=== PATIENT | male | born 1950 | race Caucasian/White ===

== ENCOUNTER 2018-01-08 10:46 | Emergency (ER) | payer MEDICARE ==
--- NOTE | 2018-01-08 11:47 | EDM.PDOC ---
ED HPI GENERAL MEDICAL PROBLEM - General Chief Complaint: Back Pain or Injury Stated Complaint: BACK PAIN Time Seen by Provider: 01/08/18 11:32 Source of Information: Reports: Patient, Old Records, RN Notes Reviewed History Limitations: Reports: No Limitations - History of Present Illness INITIAL COMMENTS - FREE TEXT/NARRATIVE: 67-year-old gentleman presents to the emergency department today asking for referral for an MRI, he has extensive back history of chronic back pain which is usually controlled by ibuprofen unfortunately his pain has been exacerbated therefore he would like an MRI. On review of records he does have a history of hypertension of which he was being treated for with blood pressure medications however he states he is healthy and does not need these medications therefore he is declining any treatment for his blood pressure medications. I did offer him treatment for pain he declined he did not want any further pain medication other than Motrin he was willing to try Flexeril. Lower Back Pain Score (Numeric/FACES): 2 - Related Data Allergies Allergy/AdvReac Type Severity Reaction Status Date / Time No Known Allergies Allergy Verified 01/08/18 11:16 Home Meds: Home Meds Cyclobenzaprine [Flexeril] 10 mg PO TID PRN #15 tab 01/08/18 [Rx] Ibuprofen 400 mg PO Q4HR 01/08/18 [History] Past Medical History HEENT History: Reports: None Musculoskeletal History: Reports: Back Pain, Chronic - Past Surgical History Neurological Surgical History: Reports: Discectomy, Laminectomy Social & Family History - Tobacco Use Smoking Status *Q: Never Smoker - Caffeine Use Caffeine Use: Reports: Coffee - Recreational Drug Use Recreational Drug Use: No ED ROS GENERAL - Review of Systems Review Of Systems: See Below Constitutional: Reports: No Symptoms Respiratory: Reports: No Symptoms Cardiovascular: Reports: No Symptoms GI/Abdominal: Reports: No Symptoms Musculoskeletal: Reports: Back Pain Neurological: Reports: No Symptoms ED EXAM, GENERAL - Physical Exam Exam: See Below Exam Limited By: No Limitations General Appearance: Alert, WD/WN, No Apparent Distress Respiratory/Chest: No Respiratory Distress Course - Vital Signs Last Recorded V/S: Last Vital Signs Temp 96.1 F 01/08/18 11:13 Pulse 109 H 01/08/18 11:13 Resp 16 01/08/18 11:13 BP 207/126 H 01/08/18 11:13 Pulse Ox 100 01/08/18 11:13 Departure - Departure Time of Disposition: 11:47 Disposition: Home, Self-Care 01 Condition: Poor Clinical Impression: Back pain Qualifiers: Back pain location: low back pain Chronicity: chronic Back pain laterality: bilateral Sciatica presence: without sciatica Qualified Code(s): M54.5 - Low back pain; G89.29 - Other chronic pain - Discharge Information Referrals: PCP,None [Primary Care Provider] - Additional Instructions: Try the Flexeril as needed in combination with your Motrin for pain control recommend restarting your your blood pressure medications, please establish with a primary care provider for further treatment, call return to the emergency department worsening of symptoms - Assessment/Plan Plan: Assessment Acuity = acute on chronic Site and laterality = low back pain Etiology = unknown etiology Manifestations = exacerbation hypertension patient declines treatment Location of injury = Home Lab values = none Plan I did offer him treatment he declined he was willing to try Flexeril therefore prescription written for 10 mg by mouth 3 times a day when necessary total #15, I've asked him to establish with primary care provider for further evaluation which may include an MRI of the future This note was dictated using [employer] voice recognition software please call with any questions on syntax or grammar.
== END 2018-01-08 12:07 | disposition home or self-care (01) ==
LOC: JP.ED 10:46
DX: G89.29 Other chronic pain (principal); M54.5 Low back pain; I10 Essential (primary) hypertension
CPT/HCPCS: 99283

== ENCOUNTER 2020-12-17 13:00 | Emergency (ER) | payer MEDICARE ==
[2020-12-17] MEDS ORDERED: Sodium Chloride 0.9% 10 ML Syringe FLUSH PRN (13:54)
--- NOTE | 2020-12-17 13:59 | EDM.PDOC ---
ED HPI GENERAL MEDICAL PROBLEM - General Chief Complaint: Respiratory Problem Stated Complaint: COPD Time Seen by Provider: 12/17/20 13:45 Source of Information: Reports: Patient, RN Notes Reviewed History Limitations: Reports: No Limitations - History of Present Illness INITIAL COMMENTS - FREE TEXT/NARRATIVE: 70-year-old gentleman presents emergency department today via EMS services complaint of shortness of breath. He has known history of chronic obstructive pulmonary disease which has progressively gotten worse he has had a significant weight loss of 60 pounds over the last 6 months. He states his shortness of breath is really progressed over the last 3 to 4 days. - Related Data Allergies Allergy/AdvReac Type Severity Reaction Status Date / Time No Known Allergies Allergy Verified 01/08/18 11:16 Home Meds: Home Meds Albuterol [Ventolin HFA] 2 puff INH Q6H 12/17/20 [History] Fluticasone/Salmeterol [Advair 100-50] 1 puff INH DAILY 12/17/20 [History] Metoprolol Succinate [Toprol XL 100mg] 100 mg PO DAILY 12/17/20 [History] Naproxen Sodium [Aleve] 1 cap PO Q8H 12/17/20 [History] Past Medical History Respiratory History: Reports: COPD Gastrointestinal History: Reports: Cholelithiasis Genitourinary History: Reports: Urinary Incontinence Musculoskeletal History: Reports: Back Pain, Chronic - Past Surgical History GI Surgical History: Reports: Cholecystectomy Neurological Surgical History: Reports: Discectomy, Laminectomy Social & Family History - Tobacco Use Tobacco Use Status *Q: Former Tobacco User Years of Tobacco use: 5 Used Tobacco, but Quit: Yes Month/Year Tobacco Last Used: 1974 - Caffeine Use Caffeine Use: Reports: None - Recreational Drug Use Recreational Drug Use: No ED ROS GENERAL - Review of Systems Review Of Systems: See Below Constitutional: Reports: No Symptoms HEENT: Reports: No Symptoms Respiratory: Reports: Shortness of Breath, Cough. Denies: Wheezing, Sputum Cardiovascular: Reports: Dyspnea on Exertion GI/Abdominal: Reports: No Symptoms : Reports: No Symptoms Musculoskeletal: Reports: No Symptoms ED EXAM, GENERAL - Physical Exam Exam: See Below Exam Limited By: Respiratory Distress General Appearance: Alert, WD/WN, Mild Distress Respiratory/Chest: Respiratory Distress, Decreased Breath Sounds, Accessory Muscle Use Cardiovascular: No Murmur, Tachycardia GI/Abdominal: Soft, Non-Tender #1 Interpretation EKG Date: 12/17/20 Time: 14:35 Rhythm: NSR [place]: Normal P-Wave: Present QRS: Normal ST-T: Normal QT: Normal Comparison: NA - No Prior EKG Course - Vital Signs Last Recorded V/S: Last Vital Signs Temp 97.5 F 12/17/20 13:32 Pulse 103 H 12/17/20 14:29 Resp 44 H 12/17/20 14:29 BP 117/79 12/17/20 14:29 Pulse Ox 93 L 12/17/20 13:32 - Orders/Labs/Meds Orders: Active Orders 24 hr Category Date Time Status BIPAP [RT BiPAP/CPAP] [RC] ASDIRECTED Care 12/17/20 15:52 Ordered EKG Documentation Completion [RC] ASDIRECTED Care 12/17/20 13:55 Active Peripheral IV Care [RC] . DIRECTED Care 12/17/20 13:55 Active RT Aerosol Therapy [RC] ASDIRECTED Care 12/17/20 15:57 Ordered Chest 1V Frontal [CR] Urgent Exams 12/17/20 13:54 Taken CULTURE BLOOD [BC] Urgent Lab 12/17/20 16:04 Ordered CULTURE BLOOD [BC] Urgent Lab 12/17/20 16:04 Ordered Piperacillin/Tazobactam [Zosyn] 4.5 gm Med 12/17/20 16:05 Ordered Sodium Chloride 0.9% [Normal Saline] 100 ml IV ONETIME Sodium Chloride 0.9% [Saline Flush] Med 12/17/20 13:54 Active 10 ml FLUSH ASDIRECTED PRN Sodium Chloride 0.9% [Saline Flush] Med 12/17/20 13:54 Active 10 ml FLUSH ASDIRECTED PRN Blood Culture x2 Reflex Set [OM.PC] Urgent Oth 12/17/20 16:04 Ordered Peripheral IV Insertion Adult [OM.PC] Urgent Oth 12/17/20 13:54 Ordered EKG 12 Lead [EK] Urgent Ther 12/17/20 13:54 Ordered Medication Orders Piperacillin Sod/Tazobactam (Sod 4.5 gm/ Sodium Chloride) 100 mls @ 100 mls/hr IV ONETIME ONE Stop: 12/17/20 17:04 Sodium Chloride (Sodium Chloride 0.9% 10 Ml Syringe) 10 ml FLUSH ASDIRECTED PRN PRN Reason: Keep Vein Open Last Admin: 12/17/20 14:58 Dose: 10 ml Documented by: LEON Sodium Chloride (Sodium Chloride 0.9% 10 Ml Syringe) 10 ml FLUSH ASDIRECTED PRN PRN Reason: Keep Vein Open Labs: Laboratory Tests 12/17/20 12/17/20 12/17/20 Range/Units 13:54 14:10 14:10 WBC 21.0 H (4.5-11.0) K/uL RBC 3.43 L (4.30-5.90) M/uL Hgb 11.1 L (12.0-15.0) g/dL Hct 31.8 L (40.0-54.0) % MCV 93 (80-98) fL MCH 32 H (27-31) pg MCHC 35 (32-36) % Plt Count 443 H (150-400) K/uL Neut % (Auto) 84.0 H (36-66) % Lymph % (Auto) 7.2 L (24-44) % [place] % (Auto) 5.5 (2-6) % Eos % (Auto) 3.2 (2-4) % Baso % (Auto) 0.1 (0-1) % D-Dimer, Quantitative (0.0-500.0) ng/mL Puncture Site Rt.brachial ABG pH 7.427 (7.350-7.450) ABG pCO2 46.2 H (35.0-42.0) mmHg ABG pO2 107.0 H (75.0-100.0) mmHg ABG HCO3 29.9 H (22.0-26.0) mmol/L ABG Total CO2 27.2 H (23.0-27.0) mmol/L ABG O2 Saturation 98.2 H (95.0-98.0) % ABG O2 Content 15.4 (15.0-23.0) %vol ABG Base Excess 5.3 mm/L ABG Hemoglobin 11.3 L (13.5-18.0) g/dL ABG Oxyhemoglobin 96.2 % ABG Carboxyhemoglobin 1.1 (0.0-1.6) % ABG Methemoglobin 0.9 % Frank Test TNP O2 Delivery Device Nasal cannula Oxygen Flow Rate 2.0 L Sodium 130 L (140-148) mmol/L Potassium 4.5 (3.6-5.2) mmol/L Chloride 92 L (100-108) mmol/L Carbon Dioxide 35 H (21-32) mmol/L Anion Gap 7.5 (5.0-14.0) mmol/L BUN 22 H (7-18) mg/dL Creatinine 0.6 L (0.8-1.3) mg/dL Est Cr Clr Drug Dosing 93.19 mL/min Estimated GFR (MDRD) > 60 (>60) Glucose 101 (74-106) mg/dL Lactic Acid (0.4-2.0) mmol/L Calcium 9.0 (8.5-10.1) mg/dL Total Bilirubin 0.5 (0.2-1.0) mg/dL AST 21 (15-37) U/L ALT 17 (12-78) U/L Alkaline Phosphatase 66 (46-116) U/L Troponin I < 0.017 (0.000-0.056) ng/mL C-Reactive Protein (0.0-0.3) mg/dL Total Protein 6.8 (6.4-8.2) g/dL Albumin 3.0 L (3.4-5.0) g/dL Globulin 3.8 H (2.3-3.5) g/dL Albumin/Globulin Ratio 0.8 L (1.2-2.2) Procalcitonin ng/mL SARS CoV-2 RNA Rapid [place]INO 12/17/20 12/17/20 12/17/20 Range/Units 14:33 14:34 15:14 WBC (4.5-11.0) K/uL RBC (4.30-5.90) M/uL Hgb (12.0-15.0) g/dL Hct (40.0-54.0) % MCV (80-98) fL MCH (27-31) pg MCHC (32-36) % Plt Count (150-400) K/uL Neut % (Auto) (36-66) % Lymph % (Auto) (24-44) % [place] % (Auto) (2-6) % Eos % (Auto) (2-4) % Baso % (Auto) (0-1) % D-Dimer, Quantitative 366.75 (0.0-500.0) ng/mL Puncture Site ABG pH (7.350-7.450) ABG pCO2 (35.0-42.0) mmHg ABG pO2 (75.0-100.0) mmHg ABG HCO3 (22.0-26.0) mmol/L ABG Total CO2 (23.0-27.0) mmol/L ABG O2 Saturation (95.0-98.0) % ABG O2 Content (15.0-23.0) %vol ABG Base Excess mm/L ABG Hemoglobin (13.5-18.0) g/dL ABG Oxyhemoglobin % ABG Carboxyhemoglobin (0.0-1.6) % ABG Methemoglobin % Frank Test O2 Delivery Device Oxygen Flow Rate L Sodium (140-148) mmol/L Potassium (3.6-5.2) mmol/L Chloride (100-108) mmol/L Carbon Dioxide (21-32) mmol/L Anion Gap (5.0-14.0) mmol/L BUN (7-18) mg/dL Creatinine (0.8-1.3) mg/dL Est Cr Clr Drug Dosing mL/min Estimated GFR (MDRD) (>60) Glucose (74-106) mg/dL Lactic Acid 1.6 (0.4-2.0) mmol/L Calcium (8.5-10.1) mg/dL Total Bilirubin (0.2-1.0) mg/dL AST (15-37) U/L ALT (12-78) U/L Alkaline Phosphatase (46-116) U/L Troponin I (0.000-0.056) ng/mL C-Reactive Protein (0.0-0.3) mg/dL Total Protein (6.4-8.2) g/dL Albumin (3.4-5.0) g/dL Globulin (2.3-3.5) g/dL Albumin/Globulin Ratio (1.2-2.2) Procalcitonin ng/mL SARS CoV-2 RNA Rapid [place] Negative 12/17/20 12/17/20 Range/Units 15:14 15:14 WBC (4.5-11.0) K/uL RBC (4.30-5.90) M/uL Hgb (12.0-15.0) g/dL Hct (40.0-54.0) % MCV (80-98) fL MCH (27-31) pg MCHC (32-36) % Plt Count (150-400) K/uL Neut % (Auto) (36-66) % Lymph % (Auto) (24-44) % [place] % (Auto) (2-6) % Eos % (Auto) (2-4) % Baso % (Auto) (0-1) % D-Dimer, Quantitative (0.0-500.0) ng/mL Puncture Site ABG pH (7.350-7.450) ABG pCO2 (35.0-42.0) mmHg ABG pO2 (75.0-100.0) mmHg ABG HCO3 (22.0-26.0) mmol/L ABG Total CO2 (23.0-27.0) mmol/L ABG O2 Saturation (95.0-98.0) % ABG O2 Content (15.0-23.0) %vol ABG Base Excess mm/L ABG Hemoglobin (13.5-18.0) g/dL ABG Oxyhemoglobin % ABG Carboxyhemoglobin (0.0-1.6) % ABG Methemoglobin % Frank Test O2 Delivery Device Oxygen Flow Rate L Sodium (140-148) mmol/L Potassium (3.6-5.2) mmol/L Chloride (100-108) mmol/L Carbon Dioxide (21-32) mmol/L Anion Gap (5.0-14.0) mmol/L BUN (7-18) mg/dL Creatinine (0.8-1.3) mg/dL Est Cr Clr Drug Dosing mL/min Estimated GFR (MDRD) (>60) Glucose (74-106) mg/dL Lactic Acid (0.4-2.0) mmol/L Calcium (8.5-10.1) mg/dL Total Bilirubin (0.2-1.0) mg/dL AST (15-37) U/L ALT (12-78) U/L Alkaline Phosphatase (46-116) U/L Troponin I (0.000-0.056) ng/mL C-Reactive Protein 0.34 H (0.0-0.3) mg/dL Total Protein (6.4-8.2) g/dL Albumin (3.4-5.0) g/dL Globulin (2.3-3.5) g/dL Albumin/Globulin Ratio (1.2-2.2) Procalcitonin < 0.05 ng/mL SARS CoV-2 RNA Rapid [place] Meds: Medications Generic Name Dose Route Start Last Admin Trade Name Freq PRN Reason Stop Dose Admin Piperacillin Sod/Tazobactam 100 mls @ 100 mls/hr 12/17/20 16:05 Sod 4.5 gm/ Sodium Chloride IV 12/17/20 17:04 ONETIME ONE Sodium Chloride 10 ml 12/17/20 13:54 12/17/20 14:58 Sodium Chloride 0.9% 10 Ml Syringe FLUSH 10 ml ASDIRECTED PRN Administration Keep Vein Open Sodium Chloride 10 ml 12/17/20 13:54 Sodium Chloride 0.9% 10 Ml Syringe FLUSH ASDIRECTED PRN Keep Vein Open Discontinued Medications Generic Name Dose Route Start Last Admin Trade Name Freq PRN Reason Stop Dose Admin Albuterol/Ipratropium 3 ml 12/17/20 15:57 12/17/20 16:02 Albuterol/Ipratropium 3.0-0.5 Mg/3 Ml Neb Soln NEB 12/17/20 15:58 3 ml ONETIME ONE Administration Departure - Departure Time of Disposition: 16:13 Disposition: DC/Tfer to Acute Hospital 02 Condition: Poor Clinical Impression: COPD exacerbation - Discharge Information Referrals: PCP,None [Primary Care Provider] - Forms: ED Department Discharge Critical Care Note - Critical Care Note Total Time (mins): 35 Sepsis Event Note (ED) - Evaluation Sepsis Screening Result: No Definite Risk - Focused Exam Vital Signs: Vital Signs Temp Pulse Resp BP Pulse Ox 12/17/20 14:29 103 H 44 H 117/79 12/17/20 13:32 97.5 F 107 H 36 H 148/84 H 93 L 12/17/20 13:28 103 H 33 H 123/71 95 12/17/20 13:05 97.5 F 107 H 36 H 148/84 H 93 L - My Orders Last 24 Hours: My Active Orders 12/17/20 13:54 Chest 1V Frontal [CR] Urgent Sodium Chloride 0.9% [Saline Flush] 10 ml FLUSH ASDIRECTED PRN Sodium Chloride 0.9% [Saline Flush] 10 ml FLUSH ASDIRECTED PRN Peripheral IV Insertion Adult [OM.PC] Urgent EKG 12 Lead [EK] Urgent 12/17/20 13:55 EKG Documentation Completion [RC] ASDIRECTED Peripheral IV Care [RC] . DIRECTED 12/17/20 15:52 BIPAP [RT BiPAP/CPAP] [RC] ASDIRECTED 12/17/20 15:57 RT Aerosol Therapy [RC] ASDIRECTED 12/17/20 16:04 CULTURE BLOOD [BC] Urgent CULTURE BLOOD [BC] Urgent Blood Culture x2 Reflex Set [OM.PC] Urgent 12/17/20 16:05 Piperacillin/Tazobactam [Zosyn] 4.5 gm Sodium Chloride 0.9% [Normal Saline] 100 ml IV ONETIME - Assessment/Plan Last 24 Hours: My Active Orders 12/17/20 13:54 Chest 1V Frontal [CR] Urgent Sodium Chloride 0.9% [Saline Flush] 10 ml FLUSH ASDIRECTED PRN Sodium Chloride 0.9% [Saline Flush] 10 ml FLUSH ASDIRECTED PRN Peripheral IV Insertion Adult [OM.PC] Urgent EKG 12 Lead [EK] Urgent 12/17/20 13:55 EKG Documentation Completion [RC] ASDIRECTED Peripheral IV Care [RC] . DIRECTED 12/17/20 15:52 BIPAP [RT BiPAP/CPAP] [RC] ASDIRECTED 12/17/20 15:57 RT Aerosol Therapy [RC] ASDIRECTED 12/17/20 16:04 CULTURE BLOOD [BC] Urgent CULTURE BLOOD [BC] Urgent Blood Culture x2 Reflex Set [OM.PC] Urgent 12/17/20 16:05 Piperacillin/Tazobactam [Zosyn] 4.5 gm Sodium Chloride 0.9% [Normal Saline] 100 ml IV ONETIME Plan: Assessment Acuity = acute Site and laterality = COPD exacerbation with pending respiratory failure Etiology = unknown Manifestations = dyspnea hypoxia Location of injury = Home Lab values = WBC elevated 21.0 consistent with leukocytosis hemoglobin low 11.1 consistent with normochromic anemia D-dimer normal at 366 ABG reveals a pH of 7.43 PCO2 46.2 bicarb 29.9 sodium low at 130 consistent hyponatremia troponin was negative CRP slightly elevated 0.4 procalcitonin is pending Covid was negative blood cultures are pending chest x-ray shows fluid in the right fissure increased opacities and hilar region loss of costophrenic angle on both sides Plan Call discussed the case with Dr. Link hospitalist on-call [facility] at 1600 can accept the patient in transport will be transported via EMS ground because his respiratory rate has increased and he started to deteriorate elected to place him on BiPAP. Also after discussion with Dr. Link elected to cover with broad-spectrum antibiotics therefore chose Zosyn blood cultures have been drawn prior to antibiotics given he will be transported via EMS ground This note was dictated using [employer] voice recognition software please call with any questions on syntax or grammar.
[2020-12-17] MEDS: Sodium Chloride 0.9% 10 ML Syringe FLUSH PRN ×2 (14:58→19:15)
[2020-12-17] MEDS ORDERED: Albuterol/Ipratropium 3.0-0.5 MG/3 ML Neb Soln NEB ONE (15:57)
[2020-12-17] MEDS ORDERED: Piperacillin/Tazobactam 4.5 GM in Sodium Chloride 0.9% 100 ML IV ONE (16:05)
[2020-12-17] MEDS ORDERED: Sodium Chloride 0.9% 10 ML Syringe FLUSH ONE (16:37)
[2020-12-17] MEDS ORDERED: Iopamidol 612 MG/ML 100 ML Bottle IV SCH (16:45)
[2020-12-17] MEDS ORDERED: Sodium Chloride 0.9% 75 ML IV SCH (16:45)
--- NOTE | 2020-12-17 17:50 | CRLCT ---
For Patients: As a result of the 21st Century Cures Act, medical imaging exams and procedure reports are released immediately into your electronic medical record. You may view this report before your referring provider. If you have questions, please contact your health care provider. INDICATION: Shortness of breath. COMPARISON: None. TECHNIQUE: CT of the chest with 100 cc of Isovue 300 IV contrast. Coronal and sagittal reconstructions. 3D post processing was performed. FINDINGS: Normal heart size. Mild dilation of the ascending thoracic aorta measuring 4.0 cm in AP dimension. Coronary artery and aortic vascular calcifications. Normal caliber central pulmonary arteries. No large central pulmonary embolism. No pericardial effusion. No thoracic lymphadenopathy. There is extensive pneumomediastinum extending into the lower neck and anterior chest wall bilaterally. There is basilar predominant subpleural reticular opacities and cystic change which may represent underlying pulmonary fibrosis. There may be superimposed paraseptal emphysema. Multifocal areas of patchy peripheral density/pleural thickening likely related to fibrosis. No definite pneumonia. Tiny left pneumothorax layering anteriorly and within the medial apex (series 3 image 17). No pleural effusion. 1.1 cm nodular opacity in the left lung apex (series 3, image 12). No central endobronchial lesion. The thyroid gland is normal in appearance. Pneumobilia in the left hepatic lobe. The visualized upper abdomen is otherwise unremarkable. Small sclerotic lesion in the T4 vertebral body most likely represents a bone island. IMPRESSION: 1. Extensive pneumomediastinum extending into the lower neck and anterior chest wall of uncertain etiology. 2. Tiny left pneumothorax. 3. Probable underlying pulmonary fibrosis with honeycombing in the lung bases. There may be superimposed paraseptal emphysema. 4. 1.1 cm nodular opacity in the left lung apex. Please see follow-up guidelines below. 5. Pneumobilia in the left hepatic lobe. [employer] GUID[employer]INES - SOLID NODULES: : SINGLE LOW RISK - nodule less than 6 mm: No routine follow-up. - nodule 6-8 mm: CT at 6-12 months, then consider CT at 18-24 months. - nodule greater than 8 mm: Consider CT at 3 months, PET/CT or tissue sampling. SINGLE HIGH RISK - nodule less than 6 mm: Optional CT at 12 months. - nodule 6-8 mm: CT at 6-12 months, then CT at 18-24 months. - nodule greater than 8 mm: Consider CT at 3 months, PET/CT or tissue sampling. Please note that all CT scans at this facility use dose modulation, iterative reconstruction, and/or weight-based dosing when appropriate to reduce radiation dose to as low as reasonably achievable. Dictated by Blanca Gifford MD @ 12/17/2020 5:48:[address] Blanca Gifford @ Dec 17 2020 5:48PM
[2020-12-17] MEDS ORDERED: methylPREDNISolone Sodium Succinate 125 MG/2 ML SDV IVPUSH ONE (19:09)
--- NOTE | 2020-12-18 10:50 | CR ---
CHEST: Portable 12/17/2020 at 2:18 PM CLINICAL HISTORY:SOB COMPARISON:None FINDINGS: Heart size and pulmonary vascularity are normal. There is diffuse interstitial prominence and scattered pleural parenchymal scarring consistent with pulmonary fibrosis. Subtle superimposed infiltrate or pneumonitis would be difficult to exclude. IMPRESSION: Moderate pleural parenchymal scarring and changes of pulmonary fibrosis Superimposed infiltrate or pneumonitis would be difficult to exclude on the left
== END 2020-12-17 19:27 ==
LOC: JP.ED 13:00
DX: J44.1 Chronic obstructive pulmonary disease with (acute) exacerbation (principal); Z87.891 Personal history of nicotine dependence; Z20.822 Contact with and (suspected) exposure to COVID-19
CPT/HCPCS: 36415; 36600; 71045; 71260; 80053; 81001; 82803; 83605; 84145; 84484; 85025; 85379; 86140; 87040; 87086; 87088; 87186; 93005; 94640; 94660; 96365; 96375; 99285; J2543; J2930; Q9967; U0002; J7620-GY